=== PATIENT | female | born 2000 | race Two or more races ===

== ENCOUNTER 2022-01-27 18:15 | Emergency (ER) | payer SELFPAY ==
[~2022-01-27] VITALS: Ht 157.5 cm; Wt 99.8 kg
[2022-01-27 18:55] LABS: Basophils # (auto) 0.1 10 ^3/uL (0-0.2); Basophils % (auto) 0.7 % (0.0-2.0); Eosinophils # (auto) 0.2 10 ^3/uL (0-0.8); Hematocrit 40.3 % (36.0-46.0); Hemoglobin 13.9 g/dL (12.2-16.2); Lymphocytes # (auto) 2.7 10 ^3/uL (0.4-5.4); Lymphocytes % (auto) 30.3 % (10.0-50.0); Mean Corpuscular Hemoglobin 28.1 pg (28.0-32.0); Mean Corpuscular Hgb Conc. 34.5 g/dL (32.0-36.0); Mean Corpuscular Volume 81.4 fL (80.0-100.0); Monocytes # (auto) 0.5 10 ^3/uL (0-1.3); Neutrophils # (auto) 5.5 10 ^3/uL (1.6-8.6); Red Blood Cells 4.95 10^6/uL (4.0-5.20); Red Cell Distribution Width 13.9 % (11.8-14.3)
[2022-01-27 19:59] LABS: Urine Bacteria FEW /hpf (None Seen); Urine Blood Negative /uL (Negative); Urine Mucus FEW (None Seen); Urine Specific Gravity 1.021 (1.001-1.035); Urine WBC 3 /hpf (0 - 5)
[2022-01-27 21:30] VITALS: BP 131/66
== END 2022-01-27 21:39 | disposition home or self-care (01) ==
LOC: ER 18:16
DX: N94.6 Dysmenorrhea, unspecified (principal)
CPT/HCPCS: 36415; 81001; 84702; 85025